=== PATIENT | female | born 1970 | race Caucasian/White ===

== ENCOUNTER 2018-04-14 14:25 | Day surgery (SDC) | payer BC, MEDICAID ==
[2018-04-14] MEDS ORDERED: PROPOFOL 20 ML (15:52)
[2018-04-14] MEDS ORDERED: MIDAZOLAM 1 MG/ML 2 ML INJ (15:53)
[2018-04-14] MEDS ORDERED: FENTAnyl 50 MCG/ML VIAL (15:53)
[2018-04-14] MEDS ORDERED: CEFAZOLIN 1 GM INJ (16:14)
[2018-04-14] MEDS: BUPIVACAINE 0.5% (SDV) 30 ML INJ (16:15)
[2018-04-14] MEDS: LIDOCAINE 1% (MPF) 30 ML INJ (16:16)
[2018-04-14] MEDS ORDERED: ONDANSETRON 4 MG INJ IV (16:30)
[2018-04-14] MEDS ORDERED: MIDAZOLAM 1 MG/ML 2 ML INJ IV (16:30)
[2018-04-14] MEDS ORDERED: hydrALAzine 20 MG INJ IV (16:30)
[2018-04-14] MEDS ORDERED: DIPHENHYDRAMINE 50 MG INJ IV (16:30)
[2018-04-14] MEDS ORDERED: LACTATED RINGER'S 1,000 ML IV* (16:30)
[2018-04-14] MEDS ORDERED: EPHEDrine SULFATE 50 MG/5 ML SYG IV (16:30)
[2018-04-14] MEDS ORDERED: METOCLOPRAMIDE 10 MG INJ IV (16:30)
[2018-04-14] MEDS ORDERED: LABETALOL HCL 20MG INJ IV (16:30)
[2018-04-14] MEDS ORDERED: OXYCODONE/ACETAMINOPHEN (5/325) TAB PO ×2 (16:30)
[2018-04-14] MEDS ORDERED: MEPERIDINE 25 MG INJ IV (16:30)
[2018-04-14] MEDS ORDERED: FENTAnyl 50 MCG/ML VIAL IV ×3 (16:30)
[2018-04-14] MEDS: CEFAZOLIN 2 GM/50 ML (PMX) 50 ML IVPB (17:06)
== END 2018-04-14 18:05 | disposition home or self-care (01) ==
LOC: SDS 14:25
DX: L92.8 Other granulomatous disorders of the skin and subcutaneous tissue (principal); E78.5 Hyperlipidemia, unspecified; E11.9 Type 2 diabetes mellitus without complications; E66.9 Obesity, unspecified; Z68.29 Body mass index [BMI] 29.0-29.9, adult
CPT/HCPCS: 14040; 82962; 84703; 88307